=== PATIENT | male | born 1995 ===

== ENCOUNTER → 2017-10-18 | Outpatient (CLI) | payer OTHER ==
--- NOTE | 2017-10-18 11:31 | DIAGNOSTIC IMAGING REPORT ---
R WRIST MIN 3 VIEWS ROUTINE CLINICAL HISTORY: RIGHT WRIST PAIN pain COMPARISON: None. DISCUSSION: The bones and joint spaces appear intact. There is no evidence of fracture, dislocation or bony disease. There is no evidence for soft tissue swelling. IMPRESSION: Negative study. The above report was generated using voice recognition software. It may contain grammatical, syntax or spelling errors. Electronically signed by: Baljeet Ramirez M.D. 10/18/2017 11:30 AM Dictated Date/Time: 10/18/2017 11:29 AM
== END | disposition home or self-care (01) ==
LOC: C.RDSM 19:33
PROVIDERS: ATTEND Internal Medicine
DX: M25.531 Pain in right wrist (principal)